=== PATIENT | female | born 1945 | race Caucasian/White ===

== ENCOUNTER → 2024-07-15 12:47 | Outpatient (REF) | payer MEDICARE, BC, SELFPAY | LOC: HWRCS 12:47 | PROVIDERS: ATTENDING PHYSICIAN Internal Medicine | DX: I51.7 Cardiomegaly (principal); M95.8 Other specified acquired deformities of musculoskeletal system; M85.80 Other specified disorders of bone density and structure, unspecified site; M85.89 Other specified disorders of bone density and structure, multiple sites | CPT/HCPCS: 93306 ==